=== PATIENT | female | born 1990 | race Caucasian/White ===

== ENCOUNTER 2017-07-09 11:41 | Emergency (ER) | payer OTHER ==
[~2017-07-09] VITALS: Ht 167.6 cm; Wt 66.0 kg
[2017-07-09 11:42] VITALS: BP 149/73; PULSE 85; RESP 16; TEMP 98.1; O2SAT 99
--- NOTE | 2017-07-09 11:52 | PD ---
HPI . abdominal pain in Chief Complaint: Related Problem Time Seen by Provider: 11:52 Travel History International Travel<30 days: No Contact w/Intl Traveler<30days: No Traveled to known affect area: No History of Present Illness HPI 26 yr old female here 6.5 weeks and having some abdominal cramping without vaginal discharge or bleeding. She tells me she feels as if she is ovulating. Yesterday she noticed some clear-like discharge. She denies any exposure to STDs. She had a beta-hCG done approximately 10 days ago and reports that it was 6000. She has an appointment to establish with Dr. Duran in July. She has not yet had a ultrasound to confirm her . She is accompanied by her significant other. She does not want a pelvic exam. [facility] Past Medical History Medical History: Denies Significant Hx ?: LMP: 05/23/17 Past Surgical History Surgical History: No Previous Surgery Social History Alcohol Use: No Tobacco Use: No Substance Use: Yes (occasional) Allergies-Medications (Allergen,Severity, Reaction): Coded Allergies: No Known Allergies (Unverified , 07/09/17) Reported Meds & Prescriptions Reported Meds & Active Scripts Active Zofran Odt (Ondansetron Odt) 4 Mg Tab 4 Mg SL Q8HR PRN Review of Systems General / Constitutional: No: Fever Eyes: No: Visual changes HENT: No: Headaches Cardiovascular: No: Chest Pain or Discomfort Respiratory: No: Shortness of Breath Gastrointestinal: No: Abdominal Pain Genitourinary: No: Dysuria Musculoskeletal: No: Pain Skin: No Rash Neurologic: No: Weakness Psychiatric: No: Depression Endocrine: No: Polydipsia Hematologic/Lymphatic: No: Easy Bruising Physical Exam Narrative GENERAL: AAO x 3, no acute distress, Well-nourished, well-developed patient. SKIN: Warm and dry. No visible rashes or bruising. HEAD: Normocephalic and atraumatic. EYES: No scleral icterus. No injection or drainage. ENT: No nasal drainage noted. Mucous membranes pink. Airway patent. Dry mucous membranes NECK: Supple, trachea midline. No JVD. CARDIOVASCULAR: Regular rate and rhythm without murmurs, gallops, or rubs. RESPIRATORY: Breath sounds equal bilaterally. No accessory muscle use. No rhonchi or rales. GASTROINTESTINAL: Abdomen soft, non-tender, nondistended. EXTREMITIES: No cyanosis or edema. BACK: No obvious deformity. No CVA tenderness. NEURO: CN II-12 intact PSYCH: AAO x 3, normal affect. Data Data Last Documented VS Vital Signs Date Time Temp Pulse Resp B/P (MAP) Pulse Ox O2 Delivery O2 Flow Rate FiO2 07/09/17 13:24 73 17 109/62 (78) 100 Room Air 07/09/17 11:42 98.1 Orders Orders Beta Hcg (Quant/Titer) (07/09/17 11:56) Us Pelvis (Ques Preg/Ectopic) (07/09/17 ) Urinalysis - C+S If Indicated (07/09/17 11:56) Ed Urine Pregnancytest Poc (07/09/17 11:56) Sodium Chlor 0.9% 1000 Ml Inj (Ns 1000 M (07/09/17 12:00) Ondansetron Inj (Zofran Inj) (07/09/17 13:30) Labs Laboratory Tests Test 07/09/17 12:14 Urine Color LIGHT-YELLOW Urine Turbidity CLEAR Urine pH 6.0 Urine Specific [place] 1.008 Urine Protein NEG mg/dL Urine Glucose (UA) NEG mg/dL Urine Ketones NEG mg/dL Urine Occult Blood NEG Urine Nitrite NEG Urine Bilirubin NEG Urine Urobilinogen LESS THAN 2.0 MG/DL Urine Leukocyte Esterase NEG Urine WBC 1 /hpf Urine Squamous Epithelial Cells 1 /hpf Urine Bacteria OCC /hpf Microscopic Urinalysis Comment CULT NOT INDICATED Human Chorionic Gonadotropin, Quant 45450 MIU/ML MDM Medical Decision Making Medical Screen Exam Complete: Yes Emergency Medical Condition: Yes Medical Record Reviewed: Yes Differential Diagnosis threatened , ectopic , constipation Narrative Course 26 yr old female who is 6.5 weeks here with c/o abdominal pain. I have discussed the case with my attending. We will check Beta HCG and Ultrasound. I have provided her with IV fluids. I offered Zofran or similar medication and she declined. Laboratory Tests Test 07/09/17 12:14 Urine Color LIGHT-YELLOW Urine Turbidity CLEAR Urine pH 6.0 Urine Specific [place] 1.008 Urine Protein NEG mg/dL Urine Glucose (UA) NEG mg/dL Urine Ketones NEG mg/dL Urine Occult Blood NEG Urine Nitrite NEG Urine Bilirubin NEG Urine Urobilinogen LESS THAN 2.0 MG/DL Urine Leukocyte Esterase NEG Urine WBC 1 /hpf Urine Squamous Epithelial Cells 1 /hpf Urine Bacteria OCC /hpf Microscopic Urinalysis Comment CULT NOT INDICATED Human Chorionic Gonadotropin, Quant 12427 MIU/ML . I was present during the US and there was a moderate about of bowel/stool in the way of the examination. Patient appears to be constipated. Her significant other reports that she has not had a good bowel movement in about 2 weeks. Recommend discussing with hog room supervisor. Consider Colace. US shows viable IUP corresponding to 6 weeks and 4 days. I have provided patient with some zofran. I recommend hog room supervisor f/u. Patient verbalized understanding of instructions, questions were answered, and thanked me for their care. I advised them if their condition worsens, please return to the nearest emergency room for further care. Diagnosis Primary Impression: Qualified Codes: Z3A.01 - Less than 8 weeks gestation of Additional Impression: Constipation Qualified Codes: K59.00 - Constipation, unspecified Patient Instructions: General Instructions Additional Instructions: Be sure to follow up with your Desizing Machine Operator Head End. Please return to emergency department if your symptoms return or worsen. Follow up with your primary care provider. Med/Other Pt SpecificInfo: No Change to Meds Scripts Ondansetron Odt (Zofran Odt) 4 Mg Tab 4 MG SL Q8HR Y for Nausea/Vomiting, #15 TAB 0 Refills Prov: Timmy Burton MD 07/09/17 Disposition: 01 DISCHARGE HOME Condition: Stable Benita Hernandez Jul 09, 2017 11:52
[2017-07-09] MEDS ORDERED: SODIUM CHLOR 0.9% 1000 ML INJ 1,000 ML IV ONE (12:00)
[2017-07-09 12:41] LABS: BACTERIA, URINE OCC /hpf; BLOOD, URINE NEG (NEG); COMMENT (UR) CULT NOT INDICATED; CULTURE IF INDICATED CULT NOT INDICATED; GLUCOSE,URINE NEG (NEG); KETONE, URINE NEG (NEG); NITRITE,URINE NEG (NEG); SQUAMOUS EPITHELIAL CELL URINE 1 /hpf (0-5); URINE COLOR LIGHT-YELLOW (YELLW/STRAW)
[2017-07-09 13:09] LABS: BETA HCG QUANT 37950 MIU/ML (0-5)
[2017-07-09 13:24] VITALS: BP 109/62; PULSE 73; RESP 17; O2SAT 100
[2017-07-09] MEDS ORDERED: ZOFR4TAB3 SL (13:28)
[2017-07-09] MEDS ORDERED: ONDANSETRON HCL 4 MG/2 ML VIAL IV PUSH ONE (13:30)
--- NOTE | 2017-07-09 13:43 | RADRPT ---
EXAM DATE/TIME: 07/09/2017 12:53 [place] COMPARISON: No previous studies available for comparison. INDICATIONS : Ectopic. Exam: Patient declined transvaginal examination. Only tansabdominal imaging was performed. LAB(S): Beta-hC MEDICAL HISTORY : . Pelvic cramping. SURGICAL HISTORY : None. ENCOUNTER: Initial ACUITY: 1 day PAIN SCORE: 3/10 LOCATION: Bilateral pelvis MEASUREMENTS: UTERUS: 8.6 x 5.9 x 5.3 cm ENDOMETRIAL STRIPE: 14 mm LEFT OVARY: 4.2 x 3.4 x 2.5 cm FREE FLUID: No CROWN RUMP LENGTH: 0.7 cm = 6 WKS 4 DAYS FHR: 134 BPM FINDINGS: UTERUS: There is an intrauterine gestational sac with a pole corresponding to 6 weeks 4 day s. cardiac activity is demonstrated at 134 bpm. RIGHT OVARY: Right ovary is obscured by overlying bowel. LEFT OVARY: Small 1.6 x 1.4 x 1.5 cm left ovarian cyst. Ovary is unremarkable with normal vascula rity. MISCELLANEOUS: No free fluid. CONCLUSION: 1. Patient declined transvaginal examination. Only tansabdominal imaging was performed. 2. Single intrauterine gestation corresponding to 6 weeks 4 days with cardiac activity present. heart rate of 134 bpm. 3. Right ovary not visualized due to overlying bowel gas. Enio Begum MD on July 09, 2017 at 13:38 Board Certified Radiologist. This report was verified electronically.
== END 2017-07-09 14:03 | disposition home or self-care (01) ==
LOC: NEPD 11:41
DX: O26.891 Other specified pregnancy related conditions, first trimester (principal); K59.00 Constipation, unspecified; Z3A.01 Less than 8 weeks gestation of pregnancy
CPT/HCPCS: 76700; 81001; 84702; 84703; 96361; 96374; 99285; J2405; J7030